=== PATIENT | female | born 1960 | race Caucasian/White ===

== ENCOUNTER 2021-09-28 22:51 | Emergency (ER) | payer MEDICARE ==
[~2021-09-28] VITALS: Ht 149.9 cm; Wt 74.4 kg
== END 2021-09-29 01:40 | disposition home or self-care (01) ==
LOC: ER 22:58
DX: U07.1 COVID-19 (principal); R05.9 Cough, unspecified; E78.5 Hyperlipidemia, unspecified; G62.9 Polyneuropathy, unspecified; F41.9 Anxiety disorder, unspecified
CPT/HCPCS: 71045; 99284; U0002